=== PATIENT | female | born 1950 | race Caucasian/White ===

== ENCOUNTER 2021-06-22 11:05 | Emergency (ER) | payer OTHER ==
[~2021-06-22] VITALS: Ht 160 cm; Wt 136.1 kg
--- NOTE | ~2021-06-22 | EMS ---
[facility] [address] [place] [address] EMS Patient Care Report Name: PHONG TREVINO Room #: DEP MIRIAM Merritt#: [id number] Admission: 06/22/21 Attend Phys: Discharge: 06/22/21 Date of : 52 Report #: [id number] THIS REPORT FOR: //name// Report Transmitted: 06/24/2021 10:32 EMS Care Summary [place], [place]/[facility] Incident [id number] @ 06/22/2021 10:36 Incident Location [facility] F2 Patient PHONG TREVINO Female, 70 Years 1950 Patient Address [address] [place] [address] F[address] [place] [address] Patient History Stroke/CVA, Patient Allergies No known allergies, Patient Medications Unknown, Chief Complaint altered mental status Disposition Transported No Lights/Cut Bank Dispatch Reason Sick Person Transported To [facility] Narrative Dispatched to [facility] for a 70 y/o f who was sick. Upon arrival pt was found lying in bed with rn. RN stated pt is there for intermediate designer care of a stroke. Pt is normally unable to communicate, and normally moans and acts uncomfortable [address] [address] EMS Patient Care Report Name: PHONG TREVINO Room #: DEP MIRIAM Merritt#: [id number] Admission: 06/22/21 Attend Phys: Discharge: 06/22/21 Date of : 52 Report #: [id number] but it is usually resolved by changing her or repositioning her. It has been going on for 1 day. Pt was then placed on cot and packaged for transport. VS were obtained and were stable. Pt transported ne to [facility]. Transport was uneventful. Arrived at [facility], pt was then taken to room and placed on bed. Pt care and report given to attending staff. Initial Vitals @11:00P: 100,R: 18,BP: 154/90,Pain: 0/10,GCS: 15,SpO2: 99,Revised Trauma: 12, @10:50P: 18,R: 98,BP: 154/90,Pain: 0/10,GCS: 15,Glucose: 178,SpO2: 99,Revised Trauma: 11, Assessments @10:48MENTAL:Confused,SKIN:No Abnormalities,HEENT:Head/Face: No Abnormalities,Eyes: No Abnormalities,Neck/Airway: No Abnormalities,LUNG SOUNDS:General: No Abnormalities,Left Upper: No Abnormalities,Right Upper: No Abnormalities,Left Lower: No Abnormalities,Right Lower: No Abnormalities,ABDOMEN:General: No Abnormalities,Left Upper: No Abnormalities,Right Upper: No Abnormalities,Left Lower: No Abnormalities,Right Lower: No Abnormalities,PELVIS//GI:No Abnormalities,EXTREMITIES:Left Arm: No Abnormalities,Right Arm: No Abnormalities,Left Leg: No Abnormalities,Right Leg: No Abnormalities,PULSE:NEURO:No Abnormalities, Impression Altered Mental Status Timeline 10:34,Call Received 10:34,Dispatch Notified 10:36,Dispatched 10:38,En Route 10:47,On Scene 10:48,At Patient 10:50,BP: 154/90 M,PULSE: 18,RR: 98 R,SPO2: 99 Ox,ETCO2: ,B,PAIN: 0,GCS: 15, 11:00,BP: 154/90 M,PULSE: 100,RR: 18 R,SPO2: 99 Ox,ETCO2: ,BG: ,PAIN: 0,GCS: 15, 11:00,Depart Scene 11:01,At Destination 11:10,Call Closed Disclaimer v1.1 Copyright 2021 [employer] This EMS Care Summary contains data elements from the applicable legal record (which may be displayed differently). It is designed to provide pertinent information for the following purposes: continuity of care, clinical quality, [address] [place] [address] EMS Patient Care Report Name: PHONG TREVINO Room #: DEP MIRIAM Merritt#: [id number] Admission: 06/22/21 Attend Phys: Discharge: 06/22/21 Date of : 52 Report #: [id number] and state data reporting. The complete legal record is available to ED staff and administrators of the receiving hospital in [employer] Patient Tracker. All data is provided "as is."
[2021-06-22 11:56] LABS: HEMATOCRIT 38.6 % (37.0-47.0); HEMOGLOBIN 12.5 gm/dL (12.0-15.0); MCH 28.8 pg (26.0-34.0); MCHC 32.4 g/dL (28.0-37.0); PLATELET COUNT 184 thou/uL (150-400); RBC 4.33 mil/uL (4.20-5.00); RDW 15.8 % (10.5-14.5); WBC 10.8 thou/uL (4.0-11.0)
[2021-06-22] MEDS ORDERED: TYLENOL325 M1 PO (12:05)
[2021-06-22] MEDS ORDERED: PROAIR HFA8.5 GM INH (12:05)
[2021-06-22] MEDS ORDERED: VITAMIN C500 M2 PO (12:05)
[2021-06-22] MEDS ORDERED: BACTRIM 400-801 EACH PO (12:05)
[2021-06-22] MEDS ORDERED: VAZALORE325 MG PO (12:05)
[2021-06-22] MEDS ORDERED: CLOPIDOGREL75 MG PO (12:06)
[2021-06-22] MEDS ORDERED: BUSPIRONE HCL5 MG PO (12:06)
[2021-06-22] MEDS ORDERED: GENTLE LAXATIVE5 M1 PO (12:06)
[2021-06-22] MEDS ORDERED: ZETIA10 MG PO ×2 (12:06→12:41)
[2021-06-22] MEDS ORDERED: KEPPRA XR750 MG PO (12:07)
[2021-06-22] MEDS ORDERED: MELATONIN5 MG PO (12:07)
[2021-06-22] MEDS ORDERED: MICATIN14 GM TOP (12:08)
[2021-06-22 12:17] LABS: CALCIUM 9.1 mg/dL (8.5-10.1)
[2021-06-22 12:20] LABS: URINE BILIRUBIN NEGATIVE (Negative); URINE BLOOD NEGATIVE (Negative); URINE COLOR YELLOW; URINE GLUCOSE-RANDOM* NEGATIVE (Negative); URINE KETONES NEGATIVE (Negative); URINE LEUKOCYTES-REFLEX TRACE (Negative); URINE NITRITE-REFLEX NEGATIVE (Negative); URINE PROTEIN (DIPSTICK) NEGATIVE (Negative); URINE SPECIFIC GRAVITY 1.025 (1.005-1.035); URINE UROBILINOGEN 0.2 E.U./dl (0.2-1.0)
[2021-06-22 12:21] LABS: URINE CLARITY SL HAZY
[2021-06-22 12:28] LABS: ALBUMIN 3.6 g/dL (3.4-5.0); TOTAL BILIRUBIN 0.6 mg/dL (0.2-1.0); TOTAL PROTEIN 6.5 g/dL (6.4-8.2)
[2021-06-22] MEDS ORDERED: MULTI FOR HER1 EAC2 PO (12:41)
[2021-06-22] MEDS ORDERED: VIMPAT100 MG PO (12:42)
[2021-06-22] MEDS ORDERED: PROTONIX 20 MG20 MG PO (12:42)
[2021-06-22] MEDS ORDERED: TRAMADOL 50 MG50 MG PO (12:42)
[2021-06-22] MEDS ORDERED: RAYOS5 MG PO (12:42)
[2021-06-22] MEDS ORDERED: PEPCID20 MG PO (12:42)
[2021-06-22 13:08] LABS: ABSOLUTE NEUTROPHILS 5.7 thou/uL (1.4-8.2); ATYPICAL LYMPHS 6 %; METAMYELOCYTES 3 %
[2021-06-22 15:48] VITALS: BP 107/55
--- NOTE | 2021-06-23 07:51 | EKG ---
[place] [address] [facility] [place] [address] ELECTROCARDIOGRAM REPORT Name: PHONG TREVINO [id number] Admission: 06/22/21 Attend Phys: Discharge: 06/22/21 Date of : 52 Report #: [id number] [facility] ED Test Date: 2021-06-22 Test Time: 13:08:24 Pat Name: PHONG TREVINO Department: Room: Gender: F Regulatory And Compliance Technician: mpark : 1950 Requested By: Suraj Ocampo Order Number: [id number] MD: Lorenzo Roberts Measurements Intervals [place] Rate: 93 P: 89 OK: 173 QRS: 33 QRSD: 77 T: 171 QT: 324 QTc: 403 Interpretive Statements Sinus rhythm Abnormal T, consider ischemia, lateral leads Baseline wander in lead(s) II No previous ECG available for comparison Electronically Signed On 06-23-2021 7:51:42 [employer] by Lorenzo Roberts [email or web address] <ELECTRONICALLY SIGNED> By: Lorenzo Roberts MD, [facility] 06/23/21 [id number] Lorenzo Roberts MD, FACC /EPI
== END 2021-06-22 16:26 | disposition home or self-care (01) ==
LOC: ER 11:05
PROVIDERS: Emergency Medicine
DX: U07.1 COVID-19 (principal); R45.1 Restlessness and agitation; Z79.82 Long term (current) use of aspirin; Z79.51 Long term (current) use of inhaled steroids; Z79.899 Other long term (current) drug therapy